=== PATIENT | female | born 1975 | race Caucasian/White ===

== ENCOUNTER 2023-08-22 12:02 | Emergency (ER) | payer OTHER ==
[~2023-08-22] VITALS: Ht 172.7 cm; Wt 90.7 kg
[2023-08-22] MEDS ORDERED: oxyCODONE IMMEDIATE RELEASE 5 MG TABLET PO ONE (12:45)
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
--- NOTE | 2023-08-22 13:10 | Diagnostic Imaging Report ---
PROCEDURE: CT lumbar spine without contrast. TECHNIQUE: Multiple contiguous axial images were obtained through the lumbar spine without the use of intravenous contrast. Sagittal and coronal reformations were then performed. Auto Exposure Controls were utilized during the CT exam to meet ALARA standards for radiation dose reduction. INDICATION: Low back pain. COMPARISON: None. FINDINGS: No acute fracture or dislocation of the lumbar spine. Alignment is anatomic. No focal osseous lesions are seen. The vertebral body heights are maintained. No high density material is seen of the spinal canal. The paraspinal soft tissues are unremarkable. IMPRESSION: 1. No acute fracture or dislocation in the lumbar spine. Dictated by: Dictated on workstation # [id number]
--- NOTE | 2023-08-22 13:44 | Diagnostic Imaging Report ---
CLINICAL HISTORY: Pelvic pain. Sacral pain. COMPARISON: None. TECHNIQUE: 3 views of the sacrum and coccyx.. FINDINGS: There is no acute fracture or dislocation of the sacrum and coccyx. Alignment is anatomic. The imaged joint spaces are preserved. IMPRESSION: 1. No acute fracture or dislocation in the sacrum and coccyx. Dictated by: Dictated on workstation # [id number]
--- NOTE | 2023-08-22 13:45 | Diagnostic Imaging Report ---
CLINICAL HISTORY: Back pain. Hip pain. COMPARISON: None. TECHNIQUE: 5 views of the pelvis and bilateral hips. FINDINGS: There is no acute fracture or dislocation of the pelvis and bilateral hips. Alignment is anatomic. The imaged joint spaces are preserved. No focal osseous lesions. IMPRESSION: 1. No acute fracture or dislocation of the pelvis and bilateral hips. Dictated by: Dictated on workstation # [id number]
[2023-08-22 14:19] VITALS: BP 105/78
== END 2023-08-22 14:21 | disposition home or self-care (01) ==
LOC: EDUNIT# 12:02 → ER 12:12
DX: M54.50 Low back pain, unspecified (principal); M25.551 Pain in right hip; M25.552 Pain in left hip; G89.29 Other chronic pain; F17.290 Nicotine dependence, other tobacco product, uncomplicated; V40.5XXA Car driver injured in collision with pedestrian or animal in traffic accident, initial encounter; Y92.410 Unspecified street and highway as the place of occurrence of the external cause
CPT/HCPCS: 72131; 72220; 73523